=== PATIENT | female | born 1980 | race African-American/Black ===

== ENCOUNTER 2024-04-29 15:39 | Outpatient (CLI) | payer OTHER, SELFPAY ==
--- NOTE | ~2024-04-29 | US_ITS ---
US pelvic complete w TV Ordering provider: Georges Lackey MD History: . N92.0 - Excessive and frequent menstruation with regular ... . Comparison: None. Technique: Transabdominal and endovaginal ultrasound of the pelvis (Doppler ultrasound interrogation techniques used as needed for this exam.) FINDINGS: CERVIX: Normal. UTERUS: Measures 8.9x 4.6x 5.2 cm in length which is within normal limits and is anteverted. Hypoech oic area is seen measuring 2.3 x 2 x 2.2 cm most likely a fibroid. ENDOMETRIUM: Normal in thickness measuring 3.7 mm. No endometrial masses, cysts or fluid. IUD is note d in the uterus. CUL DE SAC: No free fluid. RIGHT OVARY: Normal in size measuring 4x 2.3x 1.2 cm. Normal echotexture. Doppler vascular flow prese nt. LEFT OVARY: Normal in size measuring 4.2x 2.3x 2.2 cm. Normal echotexture. Doppler vascular flow pres ent. Multiple follicles are seen with the largest measures 3.1 x 0.9 x 1.9 cm. ADNEXA: Normal. No mass. IMPRESSION: Uterine fibroid. Multiple left ovarian follicles. Otherwise, normal pelvic ultrasound. Reviewed, dictated and finalized at location A. IMPRESSION: Uterine fibroid. Multiple left ovarian follicles. Otherwise, normal pelvic ultr asound.
--- OUTSIDE RECORDS SUMMARY | 2024-04-29 17:32 | XMS_ITS | Encounter Summary ---
Author Organization [facility] Address [facility] [place] [address] Care Team Providers Care Care Mgr Name Role Phone Unavailable Primary Care Provider Unavailabl e Encounter Details Date Type Department Care Team (Late st Contact Info) Description 12/30/2023 [employer] Message Enc [facility] Family Medicine - [address] [address] [facility] [place] [facility] Provider Screening Social History Tobacco Use Types Packs/Day Years Used Date Smoking Tobacco: Former Smokeless Tobacco: Never Alcohol Use Standard Drinks/Week Comments Yes 0 (1 standard drink = 0.6 oz pur e alcohol) AUDIT-C Answer Date Recorded Frequency of Alcohol Consumption Monthly or less 03/26/2018 Average Number of Drinks Not on file 019 Frequency of Binge Drinking Not on file 07/2018 PHQ-2 Answer Date Recorded PHQ-2 Score - If the patient scores above 3, please move on to questions 3-9 0 05/31/2021 Comments No Sex and Gender Information Value Date Recorded Sex Assigned at Not on file Legal Sex Female 7:15 PM CDT Gender Identity Not on file Sexual Orientation Not on file documented as of this encounter Plan of Treatment Not on file documented as of this encounter Visit Diagnoses Not on filedocumented in this encounter Additional Health Concerns Assessment Noted Time PHQ-9 Depression Total Score: 0 07/01/19 21 8:44 AM CDT documented as of this encounter
--- OUTSIDE RECORDS SUMMARY | 2024-04-29 17:32 | XMS_ITS | Clinical Summary ---
Author Organization [facility] Address [facility] [place] [address] Care Team Providers Care Reach Truck Operator Name Role Phone Kelton Murdock MD Primary Care Provide r Allergies Active Allergy Reactions Criticality Noted Date Comments Aspirin Shortness of breath,Rhinorrhea High 05/22/2019 Aspirin exacerbated respiratory disease Ibuprofen Anaphylaxis,Hives,It chi ng,Swelling,Wheezing High 06/06/2021 Penicillins Other (See comments) High 03/29/2014 Tongue swells Medications cyanocobalamin (Vitamin B-12) 1,000 mcg tabletIndications: Prevention of Vitamin B12 Deficiency Take 5 tablets (5,000 mcg total) by mouth daily Active ferrous sulfate 325 mg (65 mg of elemental iron) tablet Take 1 tablet (325 mg total) by mouth daily Active albuterol HFA (ProAir HFA) 90 mcg/actuation inhalerIndications :Allergic rhinitis due to mold Inhale 2 puffs 3 (three) times a day 8.5 each 5 08/29/19 23 Active dupilumab (Dupixent Pen) pen injectorIndication s:chronic rhinosinusitis with nasal polyposis Inject 2 mL (300 mg total) under the skin every 14 (fourteen) days 12 mL 3 08/23/19 24 Active levonorgestreL (MIRENA) IUD 1 each by intrauterine route once Active fluticasone propionate (Xhance) 93 mcg/actuation aerosol breath activatedIndicatio ns:Nasal polyposis Administer 1 spray into each nostril 2 (two) times a day 16 mL 11 09/06/19 24 Active fluticasone propionate 93 mcg/actuation aerosol breath activated Administer 1 spray into each nostril 2 (two) times a day 16 mL 09/06/19 24 Active montelukast (SINGULAIR) 10 mg tabletIndications: Nasal polyposis Take 1 tablet by mouth nightly 90 tablet 01/02/20 24 Active Allergy Relief, loratadine, 10 mg tablet Take 1 tablet by mouth once daily 90 tablet 01/02/20 24 Active Active Problems Problem Noted Date Diagnosed Date Allergic rhinitis due to mold 12/05/2018 Seasonal allergic rhinitis due to pollen 019 Constipation 11/21/2017 Change in bowel habits 11/21/2017 Aspirin allergy 10/01/2017 Chronic sinusitis 10/01/2017 Nasal polyposis 10/01/2017 Immunizations Immunization Administration Dates Next Due Influenza, Quadrivalent, Roxana l Culture-based MDCK, Preservative Free, Antibiotic Free, Intramuscular 12/05/2018 Surgical History Surgery Date Site/Laterality Comments UT UNLISTED PROCEDURE NOSE Rhinologic Surgery - (Added by TW Conv) COLONOSCOPY Medical History Medical History Date Comments Chronic constipation Anemia GERD (gastroesophageal reflux disease) Family History Medical History Relation Name Comments Diabetes Father Family history of diabetes mellitus - (Added by TW Conv) Cancer Mother Family history of malignant neoplasm - (Added by TW Conv) Lymphoma Mother Family history of lymphoma - (Added by TW Conv) Relation Name Status Comments Father Mother Social History Tobacco Use Types Packs/Day Years Used Date Smoking Tobacco: Former Smokeless Tobacco: Never Tobacco Cessation:Counseling Given: Not Answered Comments Unknown Sex and Gender Information Value Date Recorded Sex Assigned at Not on file Legal Sex Female 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 Gender Identity Not on file Sexual Orientation Not on file Obstetrics History Last Filed Vital Signs Vital Sign Reading Time Taken Comments Blood Pressure 135/91 09/06/2023 9:39 AM CDT Pulse 79 09/06/2023 9:39 AM CDT Temperature 36.4 C (97.5 F) 09/06/2023 9:39 AM CDT Respiratory Rate 17 06/03/2018 4:00 PM CDT Oxygen Saturation 100% 09/06/2023 9:39 AM CDT Inhaled Oxygen Concentration - - Weight 100.5 kg (221 lb 9.6 oz) 09/06/2023 9:39 AM CDT Height 182.9 cm (6') 09/06/2023 9:39 AM CDT Body Mass Index 30.05 09/06/2023 9:39 AM CDT Plan of Treatment Health Maintenance Due Date Last Done Comments Breast Cancer Screening-Mammogram 1981 Cervical Cancer Screening 1981 Depression Screening 1981 Hepatitis C Screening 1981 DTaP/Tdap/Td Vaccine (1 - Tdap) 1992 Varicella Vaccines (1 of 2 - 13+ 2-dose series) 1994 Hepatitis B Screening 10/26/1999 Regular Well Visit/Exam 18-64 10/26/1999 Pneumococcal vaccine <65 (1 of 2 - PCV) 2000 Influenza Vaccine Completed 12/07/2023, , 11/28/2021, Additional history exists HPV Vaccines Aged Out No longer eligi ble based on patient's age to complete this topic Insurance [facility] [employer] [id number] Care Teams Reach Truck Operator Relationship Specialty Start Date End Date Kelton Murdock MD [address] [place], [place] [id number] PCP - General 02/12/17
--- OUTSIDE RECORDS SUMMARY | 2024-04-29 17:32 | XMS_ITS | Encounter Summary ---
Author Organization [facility] Address [facility] [place] [address] Care Team Providers Care Flour Worker Name Role Phone Sara Olvera BALANCE CLERK Primary Care Provider [phone] Ad Holloway DO Primary Care Provider Alma Delia Saravia BALANCE CLERK Primary Care Provider [phone] Encounter Details Date Type Department Care Team (Late st Contact Info) Description 07/05/2021 Therapy Plan [address] [address] Nicolette Madrid MD [address] [facility] [address] [place] [address] Social History Tobacco Use Types Packs/Day Years [...] on file Sexual Orientation Not on file COVID-19 Exposure Response Date Recorded In the last 10 days, have yo u been in contact with someone who was confirmed or suspected to have Coronavirus/COVID-19? No / Unsure 07/03/2021 12:22 PM CDT documented as of this encounter Plan of Treatment Not on file documented as of this encounter Visit Diagnoses Not on filedocumented in this encounter Additional Health Concerns Assessment Noted Time PHQ-9 Depression Total Score: 0 07/01/19 21 8:44 AM CDT documented as of this encounter Care Teams Flour Worker Relationship Specialty Start Date End Date Sara Olvera NP [address] [place] [address] PCP - General NURSE PRACTITIONER 05/11/21 01/21/22 Ad Holloway DO [address] [place] [address] PCP - General FAMILY PRACTICE 01/22/22 05/19/23 Alma Delia Saravia NP [address] [place] [address] PCP - General Nurse Practitioner Family 05/27/2310/19 documented as of this encounter
--- OUTSIDE RECORDS SUMMARY | 2024-04-29 17:32 | XMS_ITS | Encounter Summary ---
Author Organization [facility] Address [address] [place] [address] Phone Care Team Providers Care Oracle Technical Architect Name Role Phone Kelton Murdock MD Primary Care Provide r Unknown, Notinfile Primary Care Provider Unavail able Kelton Murdock MD Primary Care Provide r Encounter Details Date Type Department Care Team (Latest Contact Info) Description 01/22/2014 Orders Only [facility] Scanning, Provider Social History Tobacco Use Types Packs/Day Years Used Date Smoking Tobacco: Never Assessed Comments Unknown Sex and Gender Information Value Date Recorded Sex Assigned at Not on file 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 Sex Female 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 Gender Identity Not on file Sexual Orientation Not on file documented as of this encounter Plan of Treatment Not on file documented as of this encounter Procedures Procedure Name Priority Date/Time Associated Diagnosis Comments SCAN - RADIOLOGY/IMAGING 01/22/2014 documented in this encounter Results * SCAN - RADIOLOGY/IMAGING (01/22/2014) Anatomical Region Laterality Modality Other us Provider Scanning Final Result documented in this encounter Visit Diagnoses Not on filedocumented in this encounter Care Teams Oracle Technical Architect Relationship Specialty Start Date End Date Kelton Murdock MD [address] [place] [address] PCP - General 07/10/16 02/07/17 Unknown, Cironfile PCP - General 02/08/17 02/11/17 Kelton Murdock MD [address] [place] [address] PCP - General 02/12/17 documented as of this encounter
--- OUTSIDE RECORDS SUMMARY | 2024-04-29 17:32 | XMS_ITS | Encounter Summary ---
Author Organization [facility] Address [address] [place] [address] Phone Care Team Providers Care Tile Sorter Name Role Phone Kelton Murdock MD Primary Care Provide r Unknown, Notinfile Primary Care Provider Unavail able Kelton Murdock MD Primary Care Provide r Encounter Details Date Type Department Care Team (Latest Contact Info) Description 10/10/2013 Orders Only [facility] Scanning, Provider Social History Tobacco Use Types Packs/Day Years Used Date Smoking Tobacco: Never Assessed Comments Unknown Sex and Gender Information Value Date Recorded Sex Assigned at Not on file Legal Sex Female 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 Gender Identity Not on file Sexual Orientation Not on file documented as of this encounter Plan of Treatment Not on file documented as of this encounter Procedures Procedure Name Priority Date/Time Associated Diagnosis Comments SCAN - RADIOLOGY/IMAGING 10/10/2013 documented in this encounter Results * SCAN - RADIOLOGY/IMAGING (10/10/2013) Anatomical Region Laterality Modality Other us Provider Scanning Final Result documented in this encounter Visit Diagnoses Not on filedocumented in this encounter Care Teams Tile Sorter Relationship Specialty Start Date End Date Kelton Murdock MD [address] [place] [address] PCP - General 07/10/16 02/07/17 Unknown, Cironfile PCP - General 02/08/17 02/11/17 Kelton Murdock MD [address] [place] [address] PCP - General 02/12/17 documented as of this encounter
--- OUTSIDE RECORDS SUMMARY | 2024-04-29 17:32 | XMS_ITS | Encounter Summary ---
Author Organization [facility] Address [facility] [place] [address] Care Team Providers Care Sports Leadership Instructor Name Role Phone Ad Holloway DO Primary Care Provider Alma Delia Saravia NP Primary Care Provider [phone] Encounter Details Date Type Department Care Team (Late st Contact Info) Description 05/02/[address] [facility] [address] [place] [address] Ad Holloway DO [address] [place] [id number] Bloodwork Order Social History Tobacco Use Types Packs/Day Years [...] on file documented as of this encounter Progress Notes * Ad Holloway DO - 05/02/2023 2:04 PM CDT CBC, iron panel and ferritin. Also, she should probably come in for an appointment, looks like it has been two years since she was seen in our office * Lynne Mendoza RN - 05/02/2023 2:00 PM CDT Last checked 06/05/22. Please advise? documented in this encounter Plan of Treatment Not on file documented as of this encounter Visit Diagnoses Not on filedocumented in this encounter Additional Health Concerns Assessment Noted Time PHQ-9 Depression Total Score: 0 07/01/19 21 8:44 AM CDT documented as of this encounter Care Teams Sports Leadership Instructor Relationship Specialty Start Date End Date Ad Holloway DO PCP - General FAMILY PRACTICE 01/22/22 05/19/23 Alma Delia Saravia NP PCP - General Nurse Practitioner Family 05/27/2310/19 documented as of this encounter
--- OUTSIDE RECORDS SUMMARY | 2024-04-29 17:32 | XMS_ITS | Clinical Summary ---
Author Organization [facility] Address [address] [place] [address] Care Team Providers Care Trust Clerk Name Role Phone Unavailable Primary Care Provider Unavailabl e Allergies Active Allergy Reactions Criticality Noted Date Comments Aspirin Runny Nose,Shortness of Breath,Swelling High 05/22/2019 Aspirin exacerbated respiratory disease Ibuprofen Anaphylaxis,Eyes Denzel er & Itch,Hives,Itching,Naus ea and Vomiting,Shortness of Breath,Sneezing,Swellin g High 06/06/2021 Facial swelling Penicillins Swelling 03/26/2018 Medications montelukast 10 MG tablet 03/25/2018 Active Fluticasone Propionate (XHANCE) 93 MCG/ACT Exhaler Suspension 93 mcg by Nasal route 2 (two) times daily. 07/25/2021 Active albuterol sulfate HFA 108 (90 Base) MCG/ACT inhaler Inhale 2 puffs into the lungs 3 (three) times daily. 06/23/2021 Active Dupilumab (DUPIXENT) 300 MG/2ML Solution Pen-injector Inject 300 mg into the skin. 06/07/2021 Active ferrous sulfate, 65 mg elemental, 325 (65 FE) MG tablet Take 1 tablet (325 mg total) by mouth daily. Active ALLERGY INJECTION - IN CLINIC ORDER Once a month (one shot each arm) Active loratadine (CLARITIN) 10 MG tablet Take 1 tablet (10 mg total) by mouth daily. Active Active Problems Problem Noted Date Diagnosed Date Iron deficiency anemia 06/26/2021 Asthma (HHS/HCC) 06/05/2021 Acute pharyngitis, unspecified etiology 12/05/19 20 Seasonal allergic rhinitis due to pollen 019 Allergic rhinitis due to mold 12/05/2018 Chronic sinusitis 10/01/2017 Allergic to aspirin 10/01/2017 Nasal polyposis 10/01/2017 Resolved Problems Problem Noted Date Diagnosed Date Resolved Date Sore throat 12/05/2019 05/31/2021 Immunizations Name Administration Dates Next Due Influenza Adult (Generic) 12/05/2022,11/28/2021, 12/05/2018,02/13/2016 Family History Medical History Relation Comments Diabetes Father Cancer Mother Relation Status Comments Father Mother Social History Tobacco Use Types Packs/Day Years Used Date Smoking Tobacco: Former Smokeless Tobacco: Never Tobacco Cessation:Counseling Given: Yes Alcohol Use Standard Drinks/Week Comments Yes 0 [...] on file Sexual Orientation Not on file Last Filed Vital Signs Vital Sign Reading Time Taken Comments Blood Pressure 117/89 09/19/2022 7:10 AM CDT Pulse 62 09/19/2022 7:10 AM CDT Temperature 36.7 C (98 F) 09/19/2022 7:10 AM CDT Respiratory Rate 16 09/19/2022 7:10 AM CDT Oxygen Saturation 99% 09/19/2022 7:10 AM CDT Inhaled Oxygen Concentration - - Weight 93.9 kg (207 lb) 09/19/2022 7:08 AM CDT Height 182.9 cm (6') 09/19/2022 7:08 AM CDT Body Mass Index 28.07 09/19/2022 7:08 AM CDT Plan of Treatment Health Maintenance Due Date Last Done Comments Cervical Cancer Screening Pap Smear (Age 30 to 64) Every 3 Years 1981 Annual Physical 1984 Pneumococcal Vaccine: Pediatrics (0 to 5 Years) and At-Risk Patients (6 to 64 Years) (1 of 2 - PCV) 10/26/1987 PHQ-2 (Physician [place]) 1993 Hepatitis C 10/26/1999 DTaP, Tdap and Td Vaccines (1 - Tdap) 2000 Hepatitis B Vaccines (1 of 3 - 19+ 3-dose series) 2000 Cervical Cancer Screening Pap with HPV Testing (Age 30 to 64) Every 5 Years 10/26/2011 Cervical Cancer Screening with HPV 10/26/2011 Mammogram Screening 2021 COVID-19 Vaccine ( - 2023- season) 2023 Influenza Adult (#1) 2023 12/05/2022, 11/28/2021, 12/05/2018, Additional history exists PHQ-2 (Physician [place]) 02/19/2024 HPV Vaccines Aged Out No longer eligi ble based on patient's age to complete this topic Meningococcal B Vaccine Aged Out No l onger eligible based on patient's age to complete this topic Meningococcal Vaccine Aged Out No la nena vi eligible based on patient's age to complete this topic RSV Immunizations Under 20 Months Aged Out No longer eligible based on patient's age to complete this topic Insurance [place] [address] [place] [address] [facility]
--- OUTSIDE RECORDS SUMMARY | 2024-04-29 17:32 | XMS_ITS | Continuity of Care Document ---
Author Organization [facility] Address [address] [place] [address] Phone Care Team Providers Care Sole Cutter Name Role Phone Unavailable Unavailable Unavailable Advance Directives Directive Yes / No Effective Date File Name No Information Encounters Encounter Description Practice Location Reason(s) For Visit Diagnoses Date Provider Providers Copied on Encounter [facility], [address] [facility], [place], [place], [id number], [place] tel:[phone] [facility] No Information 5 No Information Referring Provider: SAMANTHA COLÓN, [address] [place] [address],[place], [address]. tel:[phone] Family History Family Member Type Diagnosis Age At Onset No Information Payers Payer name Insurance type Covered green party ID Authoriza deondremary(s) [employer] OPEN ACCESS [id number] CI [id number] [employer] PPO [id number] CI [id number] Social History Type Description Quantity Date Captured Comments Sex Female Smoking Status No Information Chief Complaint And Reason For Visit No Information History Of Present Illness Encounter Date Complaint History Of Prese nt Illness No Information Instructions Date Instruction Additional Infor mation No Information Assessments Type Assessment Date No Information
--- OUTSIDE RECORDS SUMMARY | 2024-04-29 17:33 | XMS_ITS | Encounter Summary ---
Author Organization [facility] Address [facility] [place] [address] Care Team Providers Care Interior Decorator Paperhanging Name Role Phone Ad Holloway DO Primary Care Provider Alma Delia Saravia NP Primary Care Provider [phone] Encounter Details Date Type Department Care Team (Late st Contact Info) Description 06/21/2022 Therapy Plan [facility] [address] [place], [place] [id number] Nicolette Madrid MD [address] [place] [address] Social History Tobacco Use Types Packs/Day Years [...] suspected to have Coronavirus/COVID-19? No / Unsure 05/30/2022 7:01 AM CDT documented as of this encounter Plan of Treatment Not on file documented as of this encounter Visit Diagnoses Diagnosis Allergic rhinitis due to mold- Primary Seasonal allergic rhinitis due to pollen documented in this encounter Additional Health Concerns Assessment Noted Time PHQ-9 Depression Total Score: 0 07/01/19 21 8:44 AM CDT documented as of this encounter Care Teams Interior Decorator Paperhanging Relationship Specialty Start Date End Date Ad Holloway DO PCP - General FAMILY PRACTICE 01/22/22 05/19/23 Alma Delia Saravia NP PCP - General Nurse Practitioner Family 05/27/2310/19 documented as of this encounter
--- OUTSIDE RECORDS SUMMARY | 2024-04-29 17:33 | XMS_ITS | Referral Summary ---
Author Organization [facility] Address [address] [place] [address] Care Team Providers Care Supervisor Electronic Coils Name Role Phone Kelton Murdock MD Primary Care Provider [phone] Source Comments [facility],non-owned Affiliates and Associated Physician Practices is amultiple site organization consisting of ambulatory clinics and hospital sitesin [place], [place], [place] and [place]. This disclosure is being madepursuant to the Care Everywhere program and may not contain all information available regarding this patient. Last updated 17.[facility] Allergies Active Allergy Reactions Criticality Noted Date Comments Aspirin Shortness of Breath,Swelling High 023 Ibuprofen Shortness of Breath,Swelling High 023 Penicillins Swelling 12/27/2020 Tongue swells Medications * Be aware that medications may not be up to date on this document. Alwaysverify current medications with the patient. Medication Sig Dispensed Refills Start Date End Date Status albuterol HFA (PROVENTIL; VENTOLIN; PROAIR) 108 (90 Base) MCG/ACT inhaler 06/07/2020 Active albuterol HFA (Proventil; Ventolin; Proair) 108 (90 Base) MCG/ACT inhaler INHALE 2 PUFFS BY MOUTH NEEDED FOR WHEEZING 06/07/2020 Active Cetirizine HCl 10 MG Take 10 mg by mouth once daily 07/01/2020 Active dupilumab (Dupixent) 300 MG/2ML prefilled syringe 07/29/2019 Active levocetirizine (XYZAL) 5 MG tablet 12/13/2020 Active montelukast (SINGULAIR) 10 MG tablet 09/07/2020 Active predniSONE (DELTASONE) 20 MG tablet Take 2 tabs by mouth for 6 days, then 1 tabs for 3 days then 1/2 tab for 3 days. 17 tablet 12/27/2020 Active Additional Information Patient not taking.Reported on 04/03/2021 ondansetron, disintegrating, (ZOFRAN ODT) 4 MG tabletIndications: Non-recurrent acute allergic otitis media of left ear Take 1 (one) tablet by mouth every 6 hours as needed for Nausea/Vomiting Allow tablet to dissolve on the tongue 20 tablet 04/03/2021 Active Additional Information Patient not taking.Reported on 05/14/2021 Fluticasone Propionate (Xhance) 93 MCG/ACT EXHU Active ferrous sulfate 325 (65 FE) MG tablet Take 1 (one) tablet by mouth once daily Active allergy injection Once a month (one shot each arm) Active traMADol (Ultram) 50 MG tablet Take 1 (one) tablet to 2 (two) tablets by mouth every 6 hours as needed for Pain 20 tablet 04/18/2022 Active Additional Information Patient not taking.Reported on 05/02/2022 meclizine (Antivert) 25 MG tablet Take 1 (one) tablet by mouth 3 times daily as needed for Dizziness 20 tablet 12/26/2022 Active Additional Information Patient not taking.Reported on 02/05/2023 azithromycin (Zithromax) 250 MG tabletIndications: Streptococcal Tonsillitis Take 2 tablets on day 1, then take 1 tablet daily for 4 days Reasons: Infection of the Tonsils caused by Streptococcus Bacteria 6 tablet 12/26/2022 Active Additional Information Patient not taking.Reported on 02/05/2023 fluconazole (Diflucan) 150 MG tablet Take 1 (one) tablet by mouth once daily 2 tablet 12/26/2022 Active Additional Information Patient not taking.Reported on 02/05/2023 methylPREDNISolone (Medrol Dosepak) 4 MG tablet Take by mouth as directed Take as directed by mouth per package instructions. 21 tablet 12/26/2022 Active Additional Information Patient not taking.Reported on 02/05/2023 Eliquis 2.5 MG tablet TAKE 1 TABLET BY MOUTH TWICE DAILY FOR 14 DAYS 01/15/2023 Active HYDROcodone-acetam inophen ([place]) 5-325 MG tablet TAKE 1 TO 2 TABLETS BY MOUTH EVERY 4 TO 6 HOURS NEEDED FOR PAIN . DO NOT EXCEED 8 PER 24 HOURS 01/15/2023 Active docusate sodium (Colace) 100 MG capsule Take 1 (one) capsule by mouth once daily Active Active Problems No known active problems Social History Tobacco Use Types Packs/Day Years Used Date Smoking Tobacco: Never Smokeless Tobacco: Never Tobacco Cessation:Counseling Given: Not Answered PHQ-2 Answer Date Recorded Patient Health Questionnaire-2 Score 0 02/05/2023 Sex and Gender Information Value Date Recorded Sex Assigned at Not on file Gender Identity Not on file Sexual Orientation Not on file Last Filed Vital Signs Vital Sign Reading Time Taken Comments Blood Pressure 126/68 02/05/2023 9:59 AM SKEIN BLEACHER Pulse 90 02/05/2023 9:59 AM SKEIN BLEACHER Temperature 36.3 C (97.3 F) 12/26/2022 7:38 AM SKEIN BLEACHER Respiratory Rate 18 12/27/2020 4:11 PM SKEIN BLEACHER Oxygen Saturation 99% 02/05/2023 9:59 AM SKEIN BLEACHER Inhaled Oxygen Concentration - - Weight 93.4 kg (206 lb) 02/05/2023 9:59 AM SKEIN BLEACHER Height 182.9 cm (6') 04/18/2022 5:11 PM SKEIN BLEACHER Body Mass Index 27.94 04/18/2022 5:11 PM SKEIN BLEACHER Plan of Treatment Not on file Care Teams Supervisor Electronic Coils Relationship Specialty Start Date End Date Kelton Murdock MD [address] [address] PCP - General Internal Medicine 12/30/13
--- OUTSIDE RECORDS SUMMARY | 2024-04-29 17:33 | XMS_ITS | Patient Health Summary ---
Author Organization [facility] Address [address] [place] [address] Care Team Providers Care Equipment Maintenance Tech Name Role Phone Kelton Murdock MD Primary Care Provider [phone] Note from [facility],non-owned Affiliates and Associated Physician Practices is amultiple site organization consisting of ambulatory clinics and hospital sitesin [place], [place], [place] and [place]. This disclosure is being madepursuant to the Care Everywhere program and may not contain all information available regarding this patient. Last updated 17.[facility] Allergies * Aspirin(Shortness of Breath,Swelling) -High Criticality * Ibuprofen(Shortness of Breath,Swelling) -High Criticality * Penicillins(Swelling) Medications * Be aware that medications may not be up to date on this document. Alwaysverify current medications with the patient. * albuterol HFA (PROVENTIL; VENTOLIN; PROAIR) 108 (90 Base) MCG/ACT inhaler (Started 06/07/2020) * albuterol HFA (Proventil; Ventolin; Proair) 108 (90 Base) MCG/ACT inhaler (Started 06/07/2020) INHALE 2 PUFFS BY MOUTH NEEDED FOR WHEEZING * Cetirizine HCl 10 MG(Started 07/01/2020) Take 10 mg by mouth once daily * dupilumab (Dupixent) 300 MG/2ML prefilled syringe(Started 07/29/2019) * levocetirizine (XYZAL) 5 MG tablet(Started 12/13/2020) * montelukast (SINGULAIR) 10 MG tablet(Started 09/07/2020) * predniSONE (DELTASONE) 20 MG tablet(Started 12/27/2020) Take 2 tabs by mouth for 6 days, then 1 tabs for 3 days then 1/2 tab for 3 days. * ondansetron, disintegrating, (ZOFRAN ODT) 4 MG tablet(Started 04/03/2021) Take 1 (one) tablet by mouth every 6 hours as needed for Nausea/Vomiting Allow tablet to dissolve on the tongue * Fluticasone Propionate (Xhance) 93 MCG/ACT EXHU * ferrous sulfate 325 (65 FE) MG tablet Take 1 (one) tablet by mouth once daily * allergy injection Once a month (one shot each arm) * traMADol (Ultram) 50 MG tablet(Started 04/18/2022) Take 1 (one) tablet to 2 (two) tablets by mouth every 6 hours as needed for Pain * meclizine (Antivert) 25 MG tablet(Started 12/26/2022) Take 1 (one) tablet by mouth 3 times daily as needed for Dizziness * azithromycin (Zithromax) 250 MG tablet(Started 12/26/2022) Take 2 tablets on day 1, then take 1 tablet daily for 4 days Reasons: Infection of the Tonsils caused by Streptococcus Bacteria * fluconazole (Diflucan) 150 MG tablet(Started 12/26/2022) Take 1 (one) tablet by mouth once daily * methylPREDNISolone (Medrol Dosepak) 4 MG tablet(Started 12/26/2022) Take by mouth as directed Take as directed by mouth per package instructions. * Eliquis 2.5 MG tablet(Started 01/15/2023) TAKE 1 TABLET BY MOUTH TWICE DAILY FOR 14 DAYS * HYDROcodone-acetaminophen ([place]) 5-325 MG tablet(Started 01/15/2023) TAKE 1 TO 2 TABLETS BY MOUTH EVERY 4 TO 6 HOURS NEEDED FOR PAIN . DO NOT EXCEED 8 PER 24 HOURS * docusate sodium (Colace) 100 MG capsule Take 1 (one) capsule by mouth once daily Active Problems No known active problems Social [...] Comments Blood Pressure 126/68 02/05/2023 9:59 AM SPECIAL EDUCATION KINDERGARTEN TEACHER Pulse 90 02/05/2023 9:59 AM SPECIAL EDUCATION KINDERGARTEN TEACHER Temperature 36.3 C (97.3 F) 12/26/2022 7:38 AM SPECIAL EDUCATION KINDERGARTEN TEACHER Respiratory Rate 18 12/27/2020 4:11 PM SPECIAL EDUCATION KINDERGARTEN TEACHER Oxygen Saturation 99% 02/05/2023 9:59 AM SPECIAL EDUCATION KINDERGARTEN TEACHER Inhaled Oxygen Concentration - - Weight 93.4 kg (206 lb) 02/05/2023 9:59 AM SPECIAL EDUCATION KINDERGARTEN TEACHER Height 182.9 cm (6') 04/18/2022 5:11 PM SPECIAL EDUCATION KINDERGARTEN TEACHER Body Mass Index 27.94 04/18/2022 5:11 PM SPECIAL EDUCATION KINDERGARTEN TEACHER Procedures * CULTURE URINE(Performed 02/05/2023) Performed for Acute cystitis with hematuria * URINALYSIS - POCT (IP) BEAKER INTERFACE(Performed 02/05/2023) Performed for UTI symptoms * URINALYSIS - POCT (IP) NOTIFICATION(Performed 02/05/2023) Performed for UTI symptoms * SARS-COV-2 (COVID-19) AG (AMB) POCT(Performed 12/26/2022) Performed for Acute non-recurrent sinusitis, unspecified location, Vertigo * XR KNEE LEFT 4VW OR MORE(Performed 04/18/2022) Performed for Left knee injury, initial encounter, Work related injury * URINALYSIS - POCT (IP) BEAKER INTERFACE(Performed 05/14/2021) Performed for UTI symptoms * URINALYSIS - POCT (IP) NOTIFICATION(Performed 05/14/2021) Performed for UTI symptoms * VAGINITIS PLUS (BV CA CT NG TRICH)(Performed 05/14/2021) Results * (ABNORMAL) CULTURE URINE (02/05/2023 10:16 AM SPECIAL EDUCATION KINDERGARTEN TEACHER) Culture Urine >100,000 CFU/mL Escherichia coli(A) ALEJO 02/07/2023 6:34 AM SPECIAL EDUCATION KINDERGARTEN TEACHER [facility] MICROBIOLOGY Urine MID-STREAM URINE SPECIMEN / Unknown Collection / Unknown 02/05/2023 10:16 AM SPECIAL EDUCATION KINDERGARTEN TEACHER 02/05/2023 10:16 AM SPECIAL EDUCATION KINDERGARTEN TEACHER Narrative Organism Antibiotic Method Susceptibility Escherichia coli Amikacin ALEJO <=2 ug/mL: Susceptible Escherichia coli Ampicillin ALEJO >=32 ug/mL: Resistant Escherichia coli Ampicillin-sulbactam ALEJO >=32 ug/mL: Resistant Escherichia coli Cefazolin ALEJO 8 ug/mL: Resistant Escherichia coli Cefazolin-Urine (uncomplicated infections ONLY) ALEJO 8 ug/mL: Susceptible Escherichia coli Cefepime ALEJO <=1 ug/mL: Susceptible Escherichia coli Ceftriaxone ALEJO <=1 ug/mL: Susceptible Escherichia coli Ciprofloxacin ALEJO <=0.25 ug/mL: Susceptible Escherichia coli Extended-Spectrum Beta-Lactamase ALEJO NEG ug/mL: Neg Escherichia coli Gentamicin ALEJO <=1 ug/mL: Susceptible Escherichia coli Meropenem ALEJO <=0.25 ug/mL: Susceptible Escherichia coli Nitrofurantoin ALEJO <=16 ug/mL: Susceptible Escherichia coli Piperacillin-tazobactam ALEJO <=4 ug/mL: Susceptible Escherichia coli Tobramycin ALEJO <=1 ug/mL: Susceptible Escherichia coli Trimethoprim-sulfame thoxaz ole ALEJO <=20 ug/mL: Susceptible Comment: Urine breakpoints for cefazolin should only be used when treating uncomplicated UTIs including men and women without urologic abnormality, kidney stones, stents, nephrostomy tubes, signs/symptoms of systemic illness, or pelvic/perineal pain in men. Cefazolin results can be used to predict susceptibility to oral cephalosporins - cephalexin, cefprozil, cefaclor, cefuroxime, cefdinir, and cefpodoxime. For complicated UTIs, use alternative cefazolin susceptibility result above. Crystal Hay PAINTER AND DECORATOR APPRENTICE-LIFE CLAIMS EXAMINER LAB - MICROBIOL OGY ORDERABLES [facility]CRO[facility] [address] [place] [phone] * (ABNORMAL) URINALYSIS - POCT (IP) BEAKER INTERFACE (02/05/2023 9:56 AM SPECIAL EDUCATION KINDERGARTEN TEACHER) Only the most recent of2 resultswithin the time period is included. Color UA POCT Yellow Straw, Yellow, Light Yellow 02/05/2023 9:55 AM SPECIAL EDUCATION KINDERGARTEN TEACHER [facility] Clarity UA POCT Cloudy(A) Clear 9:55 AM SPECIAL EDUCATION KINDERGARTEN TEACHER [facility] Specific [place] UA POCT >=1.030 1.005 - 1.030 02/05/2023 9:55 AM SPECIAL EDUCATION KINDERGARTEN TEACHER [facility] pH UA POCT 6.0 5.0 - 8.5 pH 02/05/2023 9:55 AM [facility] Protein UA POCT 1+(A) Negative 9:55 AM [facility] Blood UA POCT 1+(A) Negative, Trace-lysed , Trace-intac t 02/05/2023 9:55 AM [facility] Leukocyte UA POCT 1+(A) Negative 02/05/2023 9:55 AM [facility] Nitrite UA POCT Positive(A) Negative 02/06/20 9:55 AM [facility] Glucose UA POCT Negative Negative 9:55 AM [facility] Ketone UA POCT Negative Negative 02/05/2023 9:55 AM [facility] Bilirubin UA POCT Negative Negative 02/05/2023 9:55 AM [facility] Urobilinogen UA POCT 0.2 0.2 - 1.0 EU/dL 02/05/2023 9:55 AM [facility] Urine URINE / Unknown 02/05/2023 9 :56 AM SPECIAL EDUCATION KINDERGARTEN TEACHER 02/05/2023 9:55 AM SPECIAL EDUCATION KINDERGARTEN TEACHER Darlene Oliva APRN-LIFE CLAIMS EXAMINER LAB - POINT OF CAR E ORDERABLES Performing Organization Address [facility] Co de Phone Number [facility] [address] * URINALYSIS - POCT (IP) NOTIFICATION (02/05/2023 9:49 AM SPECIAL EDUCATION KINDERGARTEN TEACHER) Only the most recent of2 resultswithin the time period is included. Comment Notification Label Only - See Separate Report 02/05/2023 11:02 AM [facility] Urine URINE / Unknown 02/05/2023 9 :49 AM SPECIAL EDUCATION KINDERGARTEN TEACHER 02/05/2023 9:49 AM SPECIAL EDUCATION KINDERGARTEN TEACHER Darlene Oliva PAINTER AND DECORATOR APPRENTICE-LIFE CLAIMS EXAMINER LAB - URINALYSIS O RDERABLES Performing Organization Address City/[facility]/ZIP Co de Phone Number [facility] [address] * SARS-COV-2 (COVID-19) AG (AMB) POCT (12/26/2022 8:13 AM SPECIAL EDUCATION KINDERGARTEN TEACHER) SARS-CoV-2 Ag Negative Negative [facility] Lot # [id number] [facility] Expiration Date [id number] [facility] Instrument Serial Number 0 [facility] COVID Internal Control Acceptable Acceptable [facility] Microbiology SPECIMEN FROM NASAL FOSSAE / Unknown 12/26/2022 8:13 AM SPECIAL EDUCATION KINDERGARTEN TEACHER Darlene Oliva PAINTER AND DECORATOR APPRENTICE-LIFE CLAIMS EXAMINER LAB - POINT OF CAR E ORDERABLES [facility] [address] [place] [address] [phone] * XR KNEE LEFT 4VW OR MORE (04/18/2022 5:41 PM SPECIAL EDUCATION KINDERGARTEN TEACHER) Anatomical Region Laterality Modality Lower Extremity Computed Radiogr aphy 04/19/2022 4:10 AM SPECIAL EDUCATION KINDERGARTEN TEACHER Narrative 04/19/2022 4:28 AM SPECIAL EDUCATION KINDERGARTEN TEACHER PROCEDURE: XR KNEE LEFT 4VW OR MORE 04/19/2022 4:10 AM HISTORY: S89.92XA: Unspecified injury of left lower leg, initial encounter Y99.0: Civilian activity done for income or pay. FINDINGS AND IMPRESSION: COMPARISON: No comparison. No acute fracture, dislocation, destructive process. Soft tissue swelling Joint effusion No significant osteoarthrosis No osseous erosive changes. > Interpreting Provider: Della Cunha MD on 04/19/2022 4:28 AM Procedure Note Della Cunha MD - 04/19/2022 PROCEDURE: XR KNEE LEFT 4VW OR MORE 04/19/2022 4:10 AM HISTORY: S89.92XA: Unspecified injury of left lower leg, initialencounter Y99.0: Civilian activity done for income or pay. FINDINGS AND IMPRESSION: COMPARISON: No comparison. No acute fracture, dislocation, destructive process. Soft tissue swelling Joint effusion No significant osteoarthrosis No osseous erosive changes. > Interpreting Provider: Della Cunha MD on 04/19/2022 4:28 AM Crystal Hay APRN-LIFE CLAIMS EXAMINER DIAGNOSTIC IMAG ING ORDERABLES * (ABNORMAL) VAGINITIS PLUS (BV CA CT NG TRICH) (05/14/2021 12:00 AM CDT) Atopobium vaginae High - 2(A) Score [facility] INSURANCE BILL BVAB 2 High - 2(A) Score [facility] INSURANCE BILL Megashaera High - 2(A) Score [facility] INSURANCE BILL Comment: Calculate total score by adding the 3 individual bacterial vaginosis (BV) marker scores together. Total score is interpreted as follows: Total score 0-1: Indicates the absence of BV. Total score 2: Indeterminate for BV. Additional clinical data should be evaluated to establish a diagnosis. Total score 3-6: Indicates the presence of BV. . This test was developed and its performance characteristics determined by [employer]. It has not been cleared or approved by the Food and Drug Administration. Pam albicans OSCAR Negative Negative [facility] INSURANCE BILL Pam glabrata OSCAR Negative Negative [facility] INSURANCE BILL Trichomonas vaginalis by OSCAR Negative Negative [facility] INSURANCE BILL Chlamydia Trachomatis OSCAR Negative Negative [facility] INSURANCE BILL GC OSCAR Negative Negative [facility] INSURANCE BILL 05/14/2021 05/15/2021 Narrative [facility] INSURANCE BILL - 05/17/2021 4:08 PM CDT Test(s) 849697-[id number] albicans, OSCAR; [id number]-Uebhimc glabrata, OSCAR was developed and its performance characteristics determined by [employer]. It has not been cleared or approved by the Food and Drug Administration. Resulting Agency Comment Lab Testing performed at: [employer] [id number] Brooke Arceo APRN-LIFE CLAIMS EXAMINER LAB - MICROBIOL OGY ORDERABLES [facility] INSURANCE BILL [address] [place] [address] Care Teams Equipment Maintenance Tech Relationship Specialty Start Date End Date Kelton Murdock MD [facility] CenterArrayComm[facility] [employer] [address] [place] [id number] PCP - General Internal Medicine 12/30/13
--- OUTSIDE RECORDS SUMMARY | 2024-04-29 17:33 | XMS_ITS | Encounter Summary ---
Author Organization [facility] Address [facility] [place] [address] Care Team Providers Care Eeg Technologist Name Role Phone Ad Holloway DO Primary Care Provider Alma Delia Saravia NP Primary Care Provider [phone] Encounter Details Date Type Department Care Team (Late st Contact Info) Description 06/21/2022 [employer] Message [facility] [address] [place] [id number] [facility] Provider Schedule Appointment for Annual Physical Social History Tobacco Use Types Packs/Day Years [...] documented as of this encounter Care Teams Eeg Technologist Relationship Specialty Start Date End Date Ad Holloway DO PCP - General FAMILY PRACTICE 01/22/22 05/19/23 Alma Delia Saravia NP PCP - General Nurse Practitioner Family 05/27/2310/19 documented as of this encounter
--- OUTSIDE RECORDS SUMMARY | 2024-04-29 17:33 | XMS_ITS | Referral Summary ---
Author Organization [facility] Address [facility] [place] [address] Care Team Providers Care Crossing Tender Name Role Phone Kelton Murdock MD Primary [...] MDCK, Preservative Free, Antibiotic Free, Intramuscular 12/05/2018 Social History Tobacco Use Types Packs/Day Years Used Date Smoking Tobacco: Former Smokeless Tobacco: Never Tobacco Cessation:Counseling Given: Not Answered Comments Unknown Sex and Gender Information Value Date Recorded Sex Assigned at Not on file Legal Sex Female 8:02 AM ASSEMBLER GOLD FRAME Gender Identity Not on file Sexual Orientation [...] 09/06/2023 9:39 AM CDT Plan of Treatment Not on file Insurance [facility] [id number] Care Teams Crossing Tender Relationship Specialty Start Date End Date Kelton Murdock MD [address] [place] [address] PCP - General 02/12/17
--- OUTSIDE RECORDS SUMMARY | 2024-04-29 17:33 | XMS_ITS | Clinical Summary ---
Author Organization [employer] [address]z [address] 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 Gender Identity Not on file Sexual Orientation Not on file Plan of Treatment Health Maintenance Due Date Last Done Comments DTAP/TDAP/TD VACCINES (1 - Tdap) 2000 HEPATITIS B VACCINES (1 of 3 - 19+ 3-dose series) 2000 CERVICAL CANCER SCREENING 10/26/2011 BREAST CANCER SCREENING 2021 INFLUENZA VACCINE (#1) 2023 HPV VACCINES Aged Out No longer eligi ble based on patient's age to complete this topic PNEUMOCOCCAL VACCINE 0-49 YEARS Aged Out No longer eligible based on patient's age to complete this topic Insurance [employer] O OPEN ACCESS Care Teams Burnisher Relationship Specialty Start Date End Date Kelton Murdock MD PCP - General Internal Medicine 06/08/14
--- OUTSIDE RECORDS SUMMARY | 2024-04-29 17:33 | XMS_ITS | Encounter Summary ---
Author Organization [facility] Address [address] [place] [address] Care Team Providers Care Lug Loader Name Role Phone Ad Holloway DO Primary Care Provider Alma Delia Saravia NP Primary Care Provider [phone] Encounter Details Date Type Department Care Team (Late st Contact Info) Description 06/19/2022 [employer] Message Enc [facility] [address] [place] [address] Yue Mckinney NP [address] [facility] [address] [place] [address] Bloodwork Social History Tobacco Use Types Packs/Day Years [...] documented as of this encounter Care Teams Lug Loader Relationship Specialty Start Date End Date Ad Holloway DO PCP - General FAMILY PRACTICE 01/22/22 05/19/23 Alma Delia Saravia NP PCP - General Nurse Practitioner Family 05/27/2310/19 documented as of this encounter
--- OUTSIDE RECORDS SUMMARY | 2024-04-29 17:33 | XMS_ITS | Encounter Summary ---
Author Organization [facility] Address [facility] [place] [address] Care Team Providers Care Solid Waste Division Supervisor Name Role Phone Sara Olvera TILE MOLDER Primary Care Provider [phone] Ad Holloway DO Primary Care Provider Alma Delia Saravia TILE MOLDER Primary Care Provider [phone] Encounter Details Date Type Department Care Team (Late st Contact Info) Description 06/14/2021 [employer] Message [facility] [address] [place] [address] [facility] Provider question Social History Tobacco Use Types Packs/Day Years [...] suspected to have Coronavirus/COVID-19? No / Unsure 05/31/2021 10:38 AM CDT documented as of this encounter Plan of Treatment Not on file documented as of this encounter Visit Diagnoses Not on filedocumented in this encounter Additional Health Concerns Assessment Noted Time PHQ-9 Depression Total Score: 0 07/01/19 21 8:44 AM CDT documented as of this encounter Care Teams Solid Waste Division Supervisor Relationship Specialty Start Date End Date Sara Olvera NP [address] [place] [address] PCP - General NURSE PRACTITIONER 05/11/21 01/21/22 Ad Holloway DO [address] [place] [address] PCP - General FAMILY PRACTICE 01/22/22 05/19/23 Alma Delia Saravia NP [address] [place] [address] PCP - General Nurse Practitioner Family 05/27/2310/19 documented as of this encounter
--- OUTSIDE RECORDS SUMMARY | 2024-04-29 17:33 | XMS_ITS | Encounter Summary ---
Author Organization [facility] Address [facility] [place] [address] Care Team Providers Care Drafter Electronic Name Role Phone Sara Olvera BRUSH OR BROOM CUTTER Primary Care Provider [phone] Ad Holloway DO Primary Care Provider Alma Delia Saravia BRUSH OR BROOM CUTTER Primary Care Provider [phone] Encounter Details Date Type Department Care Team (Late st Contact Info) Description 06/07/2021 Therapy Plan [facility] One [facility] [address] [place] [address] Sara Olvera, BRUSH OR BROOM CUTTER [address] [place] [address] Social History Tobacco Use Types Packs/Day Years [...] documented as of this encounter Care Teams Drafter Electronic Relationship Specialty Start Date End Date Sara Olvera NP [address] [place] [address] PCP - General NURSE PRACTITIONER 05/11/21 01/21/22 Ad Holloway DO [address] [place] [address] PCP - General FAMILY PRACTICE 01/22/22 05/19/23 Alma Delia Saravia NP [address] [place] [address] PCP - General Nurse Practitioner Family 05/27/2310/19 documented as of this encounter
--- OUTSIDE RECORDS SUMMARY | 2024-04-29 17:33 | XMS_ITS | Encounter Summary ---
Author Organization [facility] Address [facility] [place] [address] Care Team Providers Care Bushel Worker Name Role Phone Ad Holloway DO Primary Care Provider Alma Delia Saravia NP Primary Care Provider Encounter Details Date Type Department Care Team (Late st Contact Info) Description 07/09/2022 [employer] Message [facility] [address] [place] [address] Ad Holloway DO [address] [place] [address] Infusion Care Plan Social History Tobacco Use Types Packs/Day Years [...] suspected to have Coronavirus/COVID-19? No / Unsure 07/04/2022 7:05 AM CDT documented as of this encounter Plan of Treatment Not on file documented as of this encounter Visit Diagnoses Not on filedocumented in this encounter Additional Health Concerns Assessment Noted Time PHQ-9 Depression Total Score: 0 07/01/19 21 8:44 AM CDT documented as of this encounter Care Teams Bushel Worker Relationship Specialty Start Date End Date Ad Holloway DO PCP - General FAMILY PRACTICE 01/22/22 05/19/23 Alma Delia Saravia NP PCP - General Nurse Practitioner Family 05/27/2310/19 documented as of this encounter
--- OUTSIDE RECORDS SUMMARY | 2024-04-29 17:33 | XMS_ITS | Clinical Summary ---
Author Organization [facility] Address [address] [place] [address] Care Team Providers Care Adjunct Faculty Instructor Name Role Phone Kelton Murdock MD Primary Care Provider [phone] Source Comments [facility],non-owned Affiliates and Associated Physician Practices is amultiple site organization consisting of ambulatory clinics and hospital sitesin [place], [place], [place] and [place]. This disclosure is being madepursuant to the Care Everywhere program and may not contain all information available regarding this patient. Last updated 17.[facility] Allergies Active Allergy Reactions Criticality Noted Date [...] FOR 14 DAYS 01/15/2023 Active HYDROcodone-acetam inophen ([place]) 5-325 MG tablet TAKE 1 TO 2 [...] Comments Blood Pressure 126/68 02/05/2023 9:59 AM POULTRY PACKER Pulse 90 02/05/2023 9:59 AM POULTRY PACKER Temperature 36.3 C (97.3 F) 12/26/2022 7:38 AM POULTRY PACKER Respiratory Rate 18 12/27/2020 4:11 PM POULTRY PACKER Oxygen Saturation 99% 02/05/2023 9:59 AM POULTRY PACKER Inhaled Oxygen Concentration - - Weight 93.4 kg (206 lb) 02/05/2023 9:59 AM POULTRY PACKER Height 182.9 cm (6') 04/18/2022 5:11 PM POULTRY PACKER Body Mass Index 27.94 04/18/2022 5:11 PM POULTRY PACKER Plan of Treatment Health Maintenance Due Date Last Done Comments LIPID TESTING 1981 MAMMOGRAM 1981 PAP SMEAR 1981 HIV SCREENING 1996 HEPATITIS C SCREENING 10/21/1999 DTAP/TDAP/TD VACCINES (1 - Tdap) 2000 HEPATITIS B VACCINE (1 of 3 - 19+ 3-dose series) 2000 SCREENING FOR DIABETES 04/18/2022 COVID-19 VACCINE ( season) 2023 INFLUENZA VACCINE (#1) 2023 , 11/28/2021, 12/05/2018, Additional history exists DEPRESSION SCREENING 02/19/2024 05/02/2022 ZOSTER VACCINE (1 of 2) 10/26/2031 HIB VACCINE Aged Out No longer eligi ble based on patient's age to complete this topic HPV VACCINE Aged Out No longer eligi ble based on patient's age to complete this topic MENINGOCOCCAL (Group B) VACCINE SHARED DECISION-MAKING Aged Out No longer eligible based on patient's age to complete this topic MENINGOCOCCAL GROUPS A/C/Y/W VACCINE Aged Out No longer eligible based on patient's age to complete this topic PNEUMOCOCCAL VACCINE Aged Out No long er eligible based on patient's age to complete this topic Care Teams Adjunct Faculty Instructor Relationship Specialty Start Date End Date Kelton Murdock MD [address] [facility] [address] [facility] [address] [place] [address] PCP - General Internal Medicine 12/30/13
== END 2024-04-29 15:40 | disposition home or self-care (01) ==
PROVIDERS: Visit Provider Obstetrics & Gynecology
DX: D25.9 Leiomyoma of uterus, unspecified (principal); N83.02 Follicular cyst of left ovary; N92.0 Excessive and frequent menstruation with regular cycle
CPT/HCPCS: 76830; 76856

== ENCOUNTER 2024-05-06 08:20 | Outpatient (CLI) | payer OTHER, SELFPAY ==
[2024-05-06 08:42] LABS: Hemoglobin 9.8 g/dL (12.0-15.0)
--- OUTSIDE RECORDS SUMMARY | 2024-05-06 08:43 | XMS_ITS | Clinical Summary ---
Author Organization [facility] Address [address] [place] [address] Care Team Providers Care Hookman Name Role Phone Unavailable Primary Care Provider [...] of 2 - PCV) 10/26/1987 PHQ-2 (Physician Sawyer) 1993 Hepatitis C 10/26/1999 DTaP, Tdap and [...] 11/28/2021, 12/05/2018, Additional history exists PHQ-2 (Physician Sawyer) 02/19/2024 HPV Vaccines Aged Out No longer [...] age to complete this topic Insurance [place] [address] [address] [facility] S&S
--- OUTSIDE RECORDS SUMMARY | 2024-05-06 08:43 | XMS_ITS | Encounter Summary ---
Author Organization [facility] Address [facility] [place] [address] Care Team Providers Care In Home Sales Representative Name Role Phone Sara Olvera BLOCK FEEDER Primary Care Provider [phone] Ad Holloway DO Primary Care Provider Alma Delia Saravia BLOCK FEEDER Primary Care Provider [phone] Encounter Details Date Type Department Care Team (Late st Contact Info) Description 07/05/2021 Therapy Plan [address] [address] Nicolette Madrid MD [address] [facility] [address] [place] [address] Social History Tobacco Use Types Packs/Day Years [...] documented as of this encounter Care Teams In Home Sales Representative Relationship Specialty Start Date End Date aSra Olvera NP [address] [place] [address] PCP - General NURSE PRACTITIONER 05/11/21 01/21/22 Ad Holloway DO [address] [place] [address] PCP - General FAMILY PRACTICE 01/22/22 05/19/23 Alma Delia Saravia NP [address] [place] [address] PCP - General Nurse Practitioner Family 05/27/2310/19 documented as of this encounter
--- OUTSIDE RECORDS SUMMARY | 2024-05-06 08:43 | XMS_ITS | Encounter Summary ---
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
--- OUTSIDE RECORDS SUMMARY | 2024-05-06 08:43 | XMS_ITS | Encounter Summary ---
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
--- OUTSIDE RECORDS SUMMARY | 2024-05-06 08:44 | XMS_ITS | Clinical Summary ---
Author Organization [facility] Address [address] [facility] [address] [place] [address] Phone Care Team Providers Care Maintenance Operator Name Role Phone Kelton Murdock MD Primary Care Provider [phone] Social History Tobacco Use Types Packs/Day Years Used Date Smoking Tobacco: Never Assessed Comments Unknown Sex and Gender Information Value Date Recorded Sex Assigned at Not on file Legal Sex Female 11:35 AM SCIENTIFIC ADVISOR Gender Identity Not on file Sexual Orientation [...] patient's age to complete this topic Insurance [employer] OPEN ACCESS Care Teams Maintenance Operator Relationship Specialty Start Date End Date Kelton Murdock MD PCP - General Internal Medicine 06/08/14
--- OUTSIDE RECORDS SUMMARY | 2024-05-06 08:44 | XMS_ITS | Encounter Summary ---
Author Organization [facility] Address [address] [place] [address] Care Team Providers Care Primary Care Nurse Practitioner Name Role Phone Ad Holloway DO Primary Care Provider Alma Delia Saravia NP Primary Care Provider [phone] Encounter Details Date Type Department Care Team (Late st Contact Info) Description 06/19/2022 [employer] Message Enc [facility] [address] [place] [address] Yue Mckinney NP [address] [facility] [address] [place] [address] Bloodwork Social History Tobacco Use [...] documented as of this encounter Care Teams Primary Care Nurse Practitioner Relationship Specialty Start Date End Date Ad Holloway DO PCP - General FAMILY PRACTICE 01/22/22 05/19/23 Alma Delia Saravia NP PCP - General Nurse Practitioner Family 05/27/2310/19 documented as of this encounter
--- OUTSIDE RECORDS SUMMARY | 2024-05-06 08:44 | XMS_ITS | Encounter Summary ---
Author Organization [facility] Address [facility] [place] [address] Care Team Providers Care Test Department Helper Name Role Phone Ad Holloway DO Primary Care Provider Alma Delia Saravia NP Primary Care Provider [phone] Encounter Details Date Type Department Care Team (Late st Contact Info) Description 06/21/2022 [employer] Message [facility] [address] [place] [address] [facility] Provider Schedule Appointment for Annual Physical Social [...] documented as of this encounter Care Teams Test Department Helper Relationship Specialty Start Date End Date Ad Holloway DO PCP - General FAMILY PRACTICE 01/22/22 05/19/23 Alma Delia Saravia NP PCP - General Nurse Practitioner Family 05/27/2310/19 documented as of this encounter
--- OUTSIDE RECORDS SUMMARY | 2024-05-06 08:44 | XMS_ITS | Clinical Summary ---
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
--- OUTSIDE RECORDS SUMMARY | 2024-05-06 08:44 | XMS_ITS | Encounter Summary ---
Author Organization [facility] Address [facility] [place] [address] Care Team Providers Care Landscape Architecture Teacher Name Role Phone Sara Olvera MEDICAL RECORD CODER Primary Care Provider [phone] Ad Holloway DO Primary Care Provider Alma Delia Saravia MEDICAL RECORD CODER Primary Care Provider [phone] Encounter Details Date Type Department Care Team (Late st Contact Info) Description 06/07/2021 Therapy Plan [facility] [address] [facility] [address] [place] [address] Sara Olvera, MEDICAL RECORD CODER [address] [place] [address] Social History Tobacco Use Types [...] documented as of this encounter Care Teams Landscape Architecture Teacher Relationship Specialty Start Date End Date Sara Olvera NP [address] [place] [address] PCP - General NURSE PRACTITIONER 05/11/21 01/21/22 Ad Holloway DO [address] [place] [address] PCP - General FAMILY PRACTICE 01/22/22 05/19/23 Alma Delia Saravia NP [address] [place] [address] PCP - General Nurse Practitioner Family 05/27/2310/19 documented as of this encounter
--- OUTSIDE RECORDS SUMMARY | 2024-05-06 08:44 | XMS_ITS | Clinical Summary ---
Author Organization [facility] Address [address] [place] [address] Care Team Providers Care Model And Dye Person Name Role Phone Kelton Murdock MD Primary Care Provider [phone] Source Comments [facility],non-owned Affiliates and Associated Physician Practices is amultiple site organization consisting of ambulatory clinics and hospital sitesin [place], [place], [place] and [place]. This disclosure is being madepursuant to the Care Everywhere program and may not contain all information available regarding this patient. Last updated 17.[facility] Allergies Active Allergy Reactions Criticality Noted Date [...] FOR 14 DAYS 01/15/2023 Active HYDROcodone-acetam inophen ([place]) 5-325 MG tablet TAKE 1 TO 2 [...] Comments Blood Pressure 126/68 02/05/2023 9:59 AM PROBATION AND PAROLE OFFICER Pulse 90 02/05/2023 9:59 AM PROBATION AND PAROLE OFFICER Temperature 36.3 C (97.3 F) 12/26/2022 7:38 AM PROBATION AND PAROLE OFFICER Respiratory Rate 18 12/27/2020 4:11 PM PROBATION AND PAROLE OFFICER Oxygen Saturation 99% 02/05/2023 9:59 AM PROBATION AND PAROLE OFFICER Inhaled Oxygen Concentration - - Weight 93.4 kg (206 lb) 02/05/2023 9:59 AM PROBATION AND PAROLE OFFICER Height 182.9 cm (6') 04/18/2022 5:11 PM PROBATION AND PAROLE OFFICER Body Mass Index 27.94 04/18/2022 5:11 PM PROBATION AND PAROLE OFFICER Plan of Treatment Health Maintenance Due Date [...] age to complete this topic Care Teams Model And Dye Person Relationship Specialty Start Date End Date Kelton Murdock MD [address] [facility] [address] [place] [address] PCP - General Internal Medicine 12/30/13
--- OUTSIDE RECORDS SUMMARY | 2024-05-06 08:44 | XMS_ITS | Encounter Summary ---
Author Organization [facility] Address [facility] [place] [address] Care Team Providers Care Formula Technician Name Role Phone Unavailable Primary Care Provider Unavailabl e Encounter Details Date Type Department Care Team (Late st Contact Info) Description 12/30/2023 [employer] Message Enc [facility] Family Medicine - [address] [address] [facility] Provider Screening Social History Tobacco Use Types [...]
--- OUTSIDE RECORDS SUMMARY | 2024-05-06 08:44 | XMS_ITS | Encounter Summary ---
Author Organization [facility] Address [facility] [place] [address] Care Team Providers Care Motor Vehicle Escort Driver Name Role Phone Ad Holloway DO Primary Care Provider Alma Delia Saravia NP Primary Care Provider [phone] Encounter Details Date Type Department Care Team (Late st Contact Info) Description 07/09/2022 [employer] Message [facility] [address] [place] [address] Ad Holloway DO [address] [place] [address] Infusion Care Plan Social History Tobacco [...] documented as of this encounter Care Teams Motor Vehicle Escort Driver Relationship Specialty Start Date End Date Ad Holloway DO PCP - General FAMILY PRACTICE 01/22/22 05/19/23 Alma Delia Saravia NP PCP - General Nurse Practitioner Family 05/27/2310/19 documented as of this encounter
--- OUTSIDE RECORDS SUMMARY | 2024-05-06 08:44 | XMS_ITS | Encounter Summary ---
Author Organization [facility] Address [facility] [place] [address] Care Team Providers Care Shell Maker Lockstitch Name Role Phone Ad Holloway DO Primary Care Provider Alma Delia Saravia NP Primary Care Provider [phone] Encounter Details Date Type Department Care Team (Late st Contact Info) Description 06/21/2022 Therapy Plan [facility] One [facility] [address] [place], [place] [id number] Nicolette Madrid MD [address] [place] [address] Social History Tobacco Use Types Packs/Day Years [...] documented as of this encounter Care Teams Shell Maker Lockstitch Relationship Specialty Start Date End Date Ad Holloway DO PCP - General FAMILY PRACTICE 01/22/22 05/19/23 Alma Delia Saravia NP PCP - General Nurse Practitioner Family 05/27/2310/19 documented as of this encounter
--- OUTSIDE RECORDS SUMMARY | 2024-05-06 08:44 | XMS_ITS | Referral Summary ---
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 [address] [place] [address] [facility] [address] Care Teams Retail Salesman Relationship Specialty Start Date End Date Kelton Murdock MD [address] [place] [address] PCP - General 02/12/17
--- OUTSIDE RECORDS SUMMARY | 2024-05-06 08:44 | XMS_ITS | Continuity of Care Document ---
Author Organization [facility] Address [address] [place] [address] Phone Care Team Providers Care Rouge Sifter And [place] Name Role Phone Unavailable Unavailable Unavailable Advance Directives Directive Yes / No Effective Date File Name No Information Encounters Encounter Description Practice Location Reason(s) For Visit Diagnoses Date Provider Providers Copied on Encounter [facility], [address] [facility], [place], [place], [id number], [place] tel:[phone] [facility] No Information 5 No Information Referring Provider: SAMANTHA COLÓN, [address] [place] [address],[place], [address]. tel:[phone] Family History Family Member Type Diagnosis Age At Onset No Information Payers Payer name Insurance type Covered libertarian ID Authoriza deondremary(s) [employer] OPEN ACCESS [id number] CI [id number] [employer] PPO [id number] CI [id number] Social History Type Description Quantity Date Captured Comments Sex Female Smoking Status No Information Chief Complaint And Reason For Visit No Information History Of Present Illness Encounter Date Complaint History Of Prese nt Illness No Information Instructions Date Instruction Additional Infor mation No Information Assessments Type Assessment Date No Information
--- OUTSIDE RECORDS SUMMARY | 2024-05-06 08:44 | XMS_ITS | Encounter Summary ---
Author Organization [facility] Address Formerly [facility] [place] [address] Care Team Providers Care Biophysics Teacher Name Role Phone Ad Holloway DO Primary Care Provider Alma Delia Saravia NP Primary Care Provider [phone] Encounter Details Date Type Department Care Team (Late st Contact Info) Description 05/02/2023 BasicGov Systems Message [facility] [address] [place] [address] Ad Holloway DO [address] [place] [address] Bloodwork Order Social History Tobacco Use [...] documented as of this encounter Care Teams Biophysics Teacher Relationship Specialty Start Date End Date Ad Holloway DO PCP - General FAMILY PRACTICE 01/22/22 05/19/23 Alma Delia Saravia NP PCP - General Nurse Practitioner Family 05/27/2310/19 documented as of this encounter
--- OUTSIDE RECORDS SUMMARY | 2024-05-06 08:44 | XMS_ITS | Encounter Summary ---
Author Organization [facility] Address Formerly [facility] [place] [address] Care Team Providers Care Looper Fixer Name Role Phone Sara Olvera AD TERMINAL MAKEUP OPERATOR Primary Care Provider [phone] Ad Holloway DO Primary Care Provider Alma Delia Saravia AD TERMINAL MAKEUP OPERATOR Primary Care Provider [phone] Encounter Details Date Type Department Care Team (Late st Contact Info) Description 06/14/2021 Frograms Message [facility] [address] [place] [address] [facility] Provider question Social History Tobacco Use [...] documented as of this encounter Care Teams Looper Fixer Relationship Specialty Start Date End Date Sara Olvera NP [address] [place] [address] PCP - General NURSE PRACTITIONER 05/11/21 01/21/22 Ad Holloway DO [address] [place] [address] PCP - General FAMILY PRACTICE 01/22/22 05/19/23 Alma Delia Saravia NP [address] [place] [address] PCP - General Nurse Practitioner Family 05/27/2310/19 documented as of this encounter
== END 2024-05-06 08:21 | disposition home or self-care (01) ==
LOC: ANHSURGERY 08:25
PROVIDERS: Anesthesiology; Visit Provider Obstetrics & Gynecology
DX: N92.0 Excessive and frequent menstruation with regular cycle (principal)
CPT/HCPCS: 36415; 85014; 85018

== ENCOUNTER 2024-05-13 00:23 | Day surgery (SDC) | payer OTHER, SELFPAY ==
--- NOTE | 2024-04-30 15:46 | PC.NURSE ---
Report to the Outpatient Waiting Room, entrance under the green pavilion located off [facility], at time _0630 on date __05/13/24 . Planned Procedure Time: __829____.? Time changes happen often and if your time is changed the preop area will call you the afternoon before. - You and your visitor will be asked to self-screen and do not enter if you have any COVID symptoms. Please call surgeon if you need to reschedule. - A mask is optional within the hospital at this time. Patients may have clear liquids (water, carbonated beverages, clear teas, apple juice) until 3 hours prior to surgery with a maximum of 20 ounces. - No food from midnight until time of surgery and no smoking, or chewing tobacco (or any form of nicotine). No chewing gum, candy or mints. Take only the following medications with a SIP of water on the morning of surgery: NONE DO NOT STOP ANY OF YOUR OTHER PRESCRIPTION MEDICATIONS PRIOR TO SURGERY EXCEPT THE FOLLOWING Hold all vitamins and supplements for 3 days per anesthesiologist. Medications to discontinue per physician VITAMIN C, VITAMIN D Date to take last dose___05/10/24 Please no make-up, nail lao, hairspray, perfume, deodorant, or body powder the day of surgery.? No jewelry (including any body piercings) or valuables the day of surgery, leave them at home.? Please take a shower or bath the night before, or the morning of, surgery with an antibacterial soap.? Wear comfortable, loose fitting clothing.? - Jewelry must be removed prior to entering the operating room.? Rings and piercings that are not removed may be cut off. - The hospital will not accept responsibility for valuables.? - Please leave all valuables, including medications, at home the day of surgery. If you are going home after surgery, a licensed inventory associate and driver must drive you home.? - NO public transportation without another adult if you receive anesthesia. - We recommend that an adult stay with you for 24 hours following discharge. - We also recommend that you do not drive, make important decision, drink alcoholic beverages, or take any drugs that were not prescribed by your health care provider for at least 24 hours after your discharge time. Follow any additional instructions given to you from your surgeon. Telephone instructions given to __RUBEN and asked if any additional questions and then verbalized understanding. Patient advised to call surgeon office or pre surgery nurse liaison [phone] if any additional questions.
[2024-05-13] VITALS (7 sets, daily range): BP systolic 112–133; BP diastolic 71–81; PULSE 69–79; RESP 12–16; TEMP 36.6; O2SAT 100
--- OUTSIDE RECORDS SUMMARY | 2024-05-13 00:27 | XMS_ITS | Clinical Summary ---
Author Organization [facility] Address [address] [place] [address] Care Team Providers Care Marine Surveyor Name Role Phone Kelton Murdock MD Primary Care Provider [phone] Source Comments [facility],non-owned Affiliates and Associated Physician Practices is amultiple site organization consisting of ambulatory clinics and hospital sitesin [place], [place], [place] and [place]. This disclosure is being madepursuant to the Care Everywhere program and may not contain all information available regarding this patient. Last updated 17.[facility] Allergies Active Allergy Reactions Criticality [...] FOR 14 DAYS 01/15/2023 Active HYDROcodone-acetam inophen ([place]) 5-325 MG tablet TAKE 1 TO 2 [...] Comments Blood Pressure 126/68 02/05/2023 9:59 AM CAR FILLER Pulse 90 02/05/2023 9:59 AM CAR FILLER Temperature 36.3 C (97.3 F) 12/26/2022 7:38 AM CAR FILLER Respiratory Rate 18 12/27/2020 4:11 PM CAR FILLER Oxygen Saturation 99% 02/05/2023 9:59 AM CAR FILLER Inhaled Oxygen Concentration - - Weight 93.4 kg (206 lb) 02/05/2023 9:59 AM CAR FILLER Height 182.9 cm (6') 04/18/2022 5:11 PM CAR FILLER Body Mass Index 27.94 04/18/2022 5:11 PM CAR FILLER Plan of Treatment Health Maintenance Due Date [...] age to complete this topic Care Teams Marine Surveyor Relationship Specialty Start Date End Date Kelton Murdock MD [address] [facility] [address] [place] [address] PCP - General Internal Medicine 12/30/13
--- OUTSIDE RECORDS SUMMARY | 2024-05-13 00:27 | XMS_ITS | Encounter Summary ---
Author Organization [facility] Address [facility] [place] [address] Care Team Providers Care Chief Petroleum Engineer Name Role Phone Sara Olvera HYDROGRAPHIC ENGINEER Primary Care Provider [phone] Ad Holloway DO Primary Care Provider Alma Delia Saravia HYDROGRAPHIC ENGINEER Primary Care Provider [phone] Encounter Details Date Type Department Care Team (Late st Contact Info) Description 06/14/2021 SirenServ Message [facility] [address] [place] [address] [facility] Provider question Social History Tobacco Use Types [...] documented as of this encounter Care Teams Chief Petroleum Engineer Relationship Specialty Start Date End Date Sara Olvera NP [address] [place] [address] PCP - General NURSE PRACTITIONER 05/11/21 01/21/22 Ad Holloway DO [address] [place] [address] PCP - General FAMILY PRACTICE 01/22/22 05/19/23 Alma Delia Saravia NP [address] [place] [address] PCP - General Nurse Practitioner Family 05/27/2310/19 documented as of this encounter
--- OUTSIDE RECORDS SUMMARY | 2024-05-13 00:27 | XMS_ITS | Encounter Summary ---
Author Organization [facility] Address Replaced by [facility] [place] [address] Care Team Providers Care Global Category Manager Name Role Phone Ad Holloway DO Primary Care Provider Alma Delia Saravia NP Primary Care Provider [phone] Encounter Details Date Type Department Care Team (Late st Contact Info) Description 06/21/2022 Varolii Message [facility] [address] [place] [address] [facility] Provider Schedule Appointment for Annual Physical Social [...] documented as of this encounter Care Teams Global Category Manager Relationship Specialty Start Date End Date Ad Holloway DO PCP - General FAMILY PRACTICE 01/22/22 05/19/23 Alma Delia Saravia NP PCP - General Nurse Practitioner Family 05/27/2310/19 documented as of this encounter
--- OUTSIDE RECORDS SUMMARY | 2024-05-13 00:27 | XMS_ITS | Clinical Summary ---
Author Organization [facility] Address Formerly [facility] [place] [address] Care Team Providers Care Micro Computer Data Processor Name Role Phone Kelton Murdock MD Primary [...] 12/05/2018 Surgical History Surgery Date Site/Laterality Comments PA UNLISTED PROCEDURE NOSE Rhinologic Surgery - (Added [...] on file Legal Sex Female 8:02 AM CHILD'S NURSE Gender Identity Not on file Sexual Orientation [...] patient's age to complete this topic Insurance [facility] HMO/PPO Address: [address] [address] [employer] [facility] [address] [place] [address] Care Teams Micro Computer Data Processor Relationship Specialty Start Date End Date Kelton Murdock MD [address] [place], [place] [id number] PCP - General 02/12/17
--- OUTSIDE RECORDS SUMMARY | 2024-05-13 00:27 | XMS_ITS | Encounter Summary ---
Author Organization [facility] Address [facility] [place] [address] Care Team Providers Care Business Process Specialist Name Role Phone Sara Olvera STONE BANKER Primary Care Provider [phone] Ad Holloway DO Primary Care Provider Alma Delia Saravia STONE BANKER Primary Care Provider [phone] Encounter Details Date Type Department Care Team (Late st Contact Info) Description 07/05/2021 Therapy Plan [address] [address] Nicolette Madrid MD [address] [facility] [address] [place] [address] Social History Tobacco Use Types Packs/Day Years [...] documented as of this encounter Care Teams Business Process Specialist Relationship Specialty Start Date End Date Sara Olvera NP [address] [place] [address] PCP - General NURSE PRACTITIONER 05/11/21 01/21/22 Ad Holloway DO [address] [place] [address] PCP - General FAMILY PRACTICE 01/22/22 05/19/23 Alma Delia Saravia NP [address] [place] [address] PCP - General Nurse Practitioner Family 05/27/2310/19 documented as of this encounter
--- OUTSIDE RECORDS SUMMARY | 2024-05-13 00:27 | XMS_ITS | Encounter Summary ---
Author Organization [facility] Address [facility] [place] [address] Care Team Providers Care Music Video Producer Name Role Phone Sara Olvera HOOP DRIVING MACHINE OPERATOR HELPER Primary Care Provider [phone] Ad Holloway DO Primary Care Provider Alma Delia Saravia HOOP DRIVING MACHINE OPERATOR HELPER Primary Care Provider [phone] Encounter Details Date Type Department Care Team (Late st Contact Info) Description 06/07/2021 Therapy Plan [facility] [address] [place] [address] Sara Olvera, HOOP DRIVING MACHINE OPERATOR HELPER [address] [place] [address] Social History Tobacco Use Types [...] documented as of this encounter Care Teams Music Video Producer Relationship Specialty Start Date End Date Sara Olvera NP [address] [place] [address] PCP - General NURSE PRACTITIONER 05/11/21 01/21/22 Ad Holloway DO [address] [place] [address] PCP - General FAMILY PRACTICE 01/22/22 05/19/23 Alma Delia Saravia NP [address] [place] [address] PCP - General Nurse Practitioner Family 05/27/2310/19 documented as of this encounter
--- OUTSIDE RECORDS SUMMARY | 2024-05-13 00:27 | XMS_ITS | Referral Summary ---
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
--- OUTSIDE RECORDS SUMMARY | 2024-05-13 00:27 | XMS_ITS | Encounter Summary ---
Author Organization [facility] Address [facility] [place] [address] Care Team Providers Care Education Program Specialist Name Role Phone Ad Holloway DO Primary Care Provider Alma Delia Saravia NP Primary Care Provider [phone] Encounter Details Date Type Department Care Team (Late st Contact Info) Description 05/02/2023 thePlatform Message [facility] [address] [place] [address] Ad Holloway DO [address] [place] [phone] Bloodwork Order Social History Tobacco Use [...] documented as of this encounter Care Teams Education Program Specialist Relationship Specialty Start Date End Date Ad Holloway DO PCP - General FAMILY PRACTICE 01/22/22 05/19/23 Alma Delia Saravia NP PCP - General Nurse Practitioner Family 05/27/2310/19 documented as of this encounter
--- OUTSIDE RECORDS SUMMARY | 2024-05-13 00:27 | XMS_ITS | Encounter Summary ---
Author Organization [facility] Address Formerly [facility] [place] [address] Care Team Providers Care Routing Clerk Name Role Phone Ad Holloway DO Primary Care Provider Alma Delia Saravia NP Primary Care Provider [phone] Encounter Details Date Type Department Care Team (Late st Contact Info) Description 06/21/2022 Therapy Plan [facility] [address] [place], [place] [id number] Nicolette Madrid MD [address] [place] [address] Social History Tobacco Use Types Packs/Day Years [...] documented as of this encounter Care Teams Routing Clerk Relationship Specialty Start Date End Date Ad Holloway DO PCP - General FAMILY PRACTICE 01/22/22 05/19/23 Alma Delia Saravia NP PCP - General Nurse Practitioner Family 05/27/2310/19 documented as of this encounter
--- OUTSIDE RECORDS SUMMARY | 2024-05-13 00:27 | XMS_ITS | Encounter Summary ---
Author Organization [facility] Address [facility] [place] [address] Care Team Providers Care Termite Control Servicer Name Role Phone Ad Holloway DO Primary Care Provider Alma Delia Saravia NP Primary Care Provider [phone] Encounter Details Date Type Department Care Team (Late st Contact Info) Description 07/09/2022 Tongal Message [facility] [address] [place] [address] Ad Holloway DO [address] [place] [address] Infusion Care Plan Social History Tobacco [...] documented as of this encounter Care Teams Termite Control Servicer Relationship Specialty Start Date End Date Ad Holloway DO PCP - General FAMILY PRACTICE 01/22/22 05/19/23 Alma Delia Saravia NP PCP - General Nurse Practitioner Family 05/27/2310/19 documented as of this encounter
--- OUTSIDE RECORDS SUMMARY | 2024-05-13 00:27 | XMS_ITS | Encounter Summary ---
Author Organization [facility] Address [facility] [place] [address] Care Team Providers Care Feather Cutting Machine Feeder Name Role Phone Unavailable Primary Care Provider Unavailabl e Encounter Details Date Type Department Care Team (Late st Contact Info) Description 12/30/2023 LinkStorm Message Enc [facility] Family Medicine - [address] [address] [facility] Provider Screening Social History Tobacco Use Types [...]
--- OUTSIDE RECORDS SUMMARY | 2024-05-13 00:27 | XMS_ITS | Encounter Summary ---
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
--- OUTSIDE RECORDS SUMMARY | 2024-05-13 00:27 | XMS_ITS | Clinical Summary ---
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 Gender Identity Not on file Sexual Orientation Not on file Plan of Treatment Health Maintenance Due Date Last Done Comments DTAP/TDAP/TD VACCINES (1 - Tdap) 2000 HEPATITIS B VACCINES (1 of 3 - 19+ 3-dose series) 2000 PAP SMEAR 2002 CERVICAL CANCER SCREENING 10/26/2011 HPV/Cotest 10/26/2011 PAP SMEAR 10/26/2011 BREAST CANCER SCREENING 2021 INFLUENZA VACCINE (#1) 2023 HPV VACCINES Aged Out No longer eligi ble based on patient's age to complete this topic PNEUMOCOCCAL VACCINE 0-49 YEARS Aged Out No longer eligible based on patient's age to complete this topic Insurance [employer] OPEN ACCESS Care Teams Dobby Loom Weaver Relationship Specialty Start Date End Date Kelton Murdock MD PCP - General Internal Medicine 06/08/14
--- OUTSIDE RECORDS SUMMARY | 2024-05-13 00:27 | XMS_ITS | Encounter Summary ---
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
--- OUTSIDE RECORDS SUMMARY | 2024-05-13 00:27 | XMS_ITS | Encounter Summary ---
Author Organization [facility] Address [address] [place] [address] Care Team Providers Care Sizing Sprayer Name Role Phone Ad Holloway DO Primary Care Provider Alma Delia Saravia NP Primary Care Provider [phone] Encounter Details Date Type Department Care Team (Late st Contact Info) Description 06/19/2022 Domos Labst Message Enc [facility] [address] [place] [address] Yue Mckinney NP [address] [facility] [address] [place] [address] Bloodwork Social History Tobacco Use [...] documented as of this encounter Care Teams Sizing Sprayer Relationship Specialty Start Date End Date Ad Holloway DO PCP - General FAMILY PRACTICE 01/22/22 05/19/23 Alma Delia Saravia NP PCP - General Nurse Practitioner Family 05/27/2310/19 documented as of this encounter
--- OUTSIDE RECORDS SUMMARY | 2024-05-13 00:27 | XMS_ITS | Clinical Summary ---
Author Organization [facility] Address [address] [place] [address] Care Team Providers Care Director Clinical Operations Name Role Phone Unavailable Primary Care Provider [...] 2 - PCV) 10/26/1987 PHQ-2 (Physician [place]) 1993 Hepatitis C 10/26/1999 DTaP, Tdap and [...] 12/05/2018, Additional history exists PHQ-2 (Physician [place]) 02/19/2024 HPV Vaccines Aged Out No longer [...] age to complete this topic Insurance [place] [address] [place] [address] C/O PROVIDER SERVICES [place] [address] [facility] - S[facility]S
--- NOTE | 2024-05-13 07:28 | WPDHPUPDATE1 ---
History and Physical Update Update Date/Time: 05/13/24 07:28 History and Physical has been reviewed, including an updated exam of the patient. There are NO changes in the patient's condition. Risks, benefits, and alternatives have been discussed and questions answered. Patient agrees to proceed with procedure.
[2024-05-13] MEDS: LACTATED RINGERS 1,000 ML 30 ML IV CONT (07:50)
[2024-05-13 07:51] LABS: BEDSIDEPREGUCG Negative (Negative)
[2024-05-13] MEDS: ACETAMINOPHEN 500 MG TABLET 1000 MG PO (07:51)
--- NOTE | 2024-05-13 08:26 | P.PNAN_ITS ---
Anes - Initial Pre Proc Eval Procedure: Operation Date: 05/13/24 08:30 Proposed Procedures p Hysteroscopy Dilation and Curettage with Valeria Endometrial Ablation, Intrauterine Device Removal - Georges Lackey MD Date/Time: 05/13/24 08:26 Surgeon: Georges Lackey MD Pre Op Diagnosis: menorrhagia Patient Data Age: 43 Gender: F Height: 1.8 m Weight: 101.5 kg Last Vital Signs Temp 97.9 F 05/13/24 07:35 Pulse 79 05/13/24 07:35 BP 133/81 05/13/24 07:35 Pulse Ox 100 05/13/24 07:35 O2 Del Method Room Air 05/13/24 07:35 Allergies Allergy/AdvReac Type Severity Reaction Status Date / Time aspirin Allergy Severe asthma Verified 05/13/24 07:34 attack ibuprofen Allergy Severe asthma Verified 05/13/24 07:34 attack Penicillins Allergy Unknown Unknown Verified 05/13/24 07:34 ARTIFICIAL CINNAMON Allergy Mild WHITE Uncoded 05/13/24 07:34 BUMPS ROOF OF MOUTH POMEGRANATES Allergy Mild NECK RASH Uncoded 05/13/24 07:34 Home Medications ?Medication ?Instructions ?Recorded ?Confirmed ?Type levocetirizine 5 mg tablet (Xyzal) 5 mg PO DAILY 10/29/19 04/30/24 History montelukast 10 mg tablet 10 mg PO DAILY 10/29/19 04/30/24 History (Singulair) dupilumab 100 mg/0.67 mL 300 mg subcut WEEKLY 01/16/22 04/30/24 History subcutaneous syringe (Dupixent) ferrous sulfate 325 mg (65 mg 325 mg PO DAILY 01/16/22 04/30/24 History iron) tablet (FeroSul) loratadine 10 mg tablet (Claritin) 10 mg PO DAILY 07/03/23 04/30/24 History levonorgestrel (Mirena) 1 device intrauterine ONCE 09/26/23 04/30/24 History ascorbic acid (vitamin C) 500 mg 500 mg PO DAILY 04/30/24 04/30/24 History tablet (C-500) calcium phosphate,dibasic 77 1 tablet PO DAILY 04/30/24 04/30/24 History mg-vitamin D3 400 unit tablet Laboratory Tests 05/13/24 07:35 POC Urine HCG, Qual Negative (Negative) Patient hx anesthesia problems: none Family hx anesthesia problems: none Results Review: All pre-operative results and documents have been reviewed as part of the pre- operative evaluation. [facility] Past Medical History Medical History Anemia Asthma Seasonal allergies Vaginal delivery Surgical History Surgical History H/O sinus surgery Family History Family History Grandparent Cerebrovascular accident Diabetes mellitus Father Family history of diabetes mellitus in first degree relative Diabetes mellitus Mother Family history of lymphoma, Onset Age: 56 Other Hypertension Social History Social History Smoking status: Never smoker Second hand tobacco smoke exposure: No Alcohol intake: current Substance use: never Substance use type: does not use Living arrangements: with family Spiritual care concerns: No Anes - Eval Final PreProcedure Day of Procedure 05/13/24 08:26 Patient weight: obese Heart: regular rate and rhythm Lungs: clear to auscultation Airway: Mallampati scale class II Neurological: alert and oriented Last oral intake: >/= 8 hours ASA classification: II Emergent: no Anesthetic plan: proceed Anesthesia type and monitoring: general GIVS and standard monitoring Results Review: All pre-operative results and documents have been reviewed as part of the pre- operative evaluation. Informed Consent: The patient's anesthetic plan and its attendant risks and benefits were discussed with the patient/family/POA. Questions were solicited and answers provided to the satisfaction of the patient/family/POA.
[2024-05-13] MEDS: ceFAZolin 2 GM/D5W 50 ML 2 GM/50 ML BAG IVPB (08:33)
[2024-05-13] MEDS: LIDOCAINE 1% LOCAL INJ 20 ML VIAL 10 ML INFILTRATE (08:33)
--- NOTE | 2024-05-13 09:02 | W.PM.PROC2 ---
Procedure Note - Detailed Date of Procedure 05/13/24 Pre-op Diagnosis menorrhagia Post-op Diagnosis Same Procedure Performed Removal of IUD. Hysteroscopy dilation and curettage, attempted Valeria ablation Surgeon Georges Lackey MD Anesthesia MAC and Local Indications Persistent menorrhagia. Findings IUD normal appearing. Uterus sound to 9cm, cervical length 4.5cm, normal appearing cavity, Valeria arms would not deploy x2. Description of Procedure After informed consent was obtained patient was taken to the operating room and adequate IV sedation was administered. Attention was turned to the vagina. Speculum was inserted. Single-tooth tenaculum placed on the anterior lip of the cervix. IUD string visualized and removed. 10 cc of 1% lidocaine was injected at the cervical vaginal interface at the 2 and 5 and 8 and 10 position. The uterus was sounded to 9cm. The cervix was dilated to an 8 Hooker dilator. The cervical length was 4.5 . The hysteroscope was inserted into the cavity. The findings were a normal uterine cavity with proliferative tissue. The hysteroscope was removed. Curettage performed. The Valeria ablation instrument was inserted into the cavity. The arms did not deploy. The device was taken out and the arm still did not deploy fully even outside of the cavity. The balloon did not appear to deflate completely either and the arms again would not fully deploy. This appeared defective therefore another Valeria was opened. Hysteroscope performed, cavity intact. The uterine sound and cervix length measurements the same. The second device was inserted into the cavity and the arms would not go out of the red. Therefore ablation procedure not able to proceed. The single-tooth tenaculum was removed hemostasis was noted at the tenaculum site. Sponge count correct. The patient taken to recovery in stable condition. Estimated Blood Loss 5 Drains No Packing No Pathology Yes (endometrial curettings) Complications No immediate complications Condition Stable Disposition Same day [facility] Billing Surgery - Charge Forward: Surgery Billing
[2024-05-13] MEDS: fentaNYL CITRATE INJ (*CRX) 100 MCG/2 ML VIAL 25 MCG IV PUSH ×2 (09:17→09:19)
== END 2024-05-13 10:38 | disposition home or self-care (01) ==
PROVIDERS: Visit Provider Obstetrics & Gynecology
PROC: 0U5B8ZZ Destruction of Endometrium, Via Natural or Artificial Opening Endoscopic (ICD-10-PCS; CPT 58563; principal; 2024-05-13 08:30)
DX: N85.8 Other specified noninflammatory disorders of uterus (principal); D64.9 Anemia, unspecified; J45.909 Unspecified asthma, uncomplicated; E66.9 Obesity, unspecified; Z68.31 Body mass index [BMI] 31.0-31.9, adult; Z53.8 Procedure and treatment not carried out for other reasons; Z98.890 Other specified postprocedural states; Z80.7 Family history of other malignant neoplasms of lymphoid, hematopoietic and related tissues; Z82.49 Family history of ischemic heart disease and other diseases of the circulatory system
CPT/HCPCS: 58579; 58563; 88305; A9270; J0690; J2003; J2250; J2405; J2704; J3010; J7120